=== PATIENT | male | born 1935 | race Caucasian/White ===

== ENCOUNTER 2024-12-01 14:17 | Inpatient (IN) | payer MEDICARE, OTHER ==
[~2024-12-01 14:17] MED LIST: Iopamidol 370 76% 100 ML VIAL ONE
[2024-12-01] MEDS ORDERED: Heparin 10,000 UNITS/ 10 ML VIAL ONE (14:23)
[2024-12-01] MEDS ORDERED: Aspirin Chewable 81 MG TAB ONE (14:23)
[2024-12-01 14:36] LABS: #Basophils Less than 0.03 10x3/uL (0.0-0.2); #Eosinophils Less than 0.03 10x3/uL (0.0-0.7); %Basophils 0.2 % (0.0-1.0); %Lymphocytes 3.9 % (21.0-51.0); %Monocytes 8.5 % (0.0-10.0); %Neutrophils 87.2 % (42.0-75.0); Hematocrit 28.2 % (42.0-52.0); Hemoglobin 8.5 g/dL (14.0-18.0); Mean Corpuscular HGB CONC 30.1 g/dL (32.0-36.0); Mean Corpuscular Volume 82.9 fL (78.0-98.0); Mean Platelet Volume 10.8 fL (7.4-10.4); Platelet Count 222 10x3/uL (130-400); RBC Distribution Width 16.9 % (11.5-14.5)
[2024-12-01 14:51] LABS: INR-International Normal Ratio 1.1; PTT 26.5 sec (22.9-36.1); Prothrombin Time 14.3 sec (12.0-14.7)
[2024-12-01 15:03] LABS: ALT (SGPT) 10 U/L (Less than 45); AST (SGOT) 25 U/L (11-34); Albumin 3.3 g/dL (3.1-4.5); Alkaline Phosphatase 60 U/L (40-110); Anion Gap 15 mmol/L (10-20); BUN (Urea Nitrogen) 12 mg/dL (8.4-25.7); Bilirubin, Total 0.7 mg/dL (0.3-1.2); Calc. Creatinine Clearance 0 mL/min (70-130); Calcium 8.3 mg/dL (7.8-10.44); Carbon Dioxide 20 mmol/L (23-31); Chloride 105 mmol/L (98-107); Estimated GFR 55; Globulin 3.3 g/dL (2.4-3.5); Glucose 142 mg/dL (83-110); Protein, Total 6.6 g/dL (5.8-8.1); Sodium 136 mmol/L (136-145)
[2024-12-01 15:05] LABS: Troponin I 0.162 ng/mL (< 0.028)
[2024-12-01 16:21] VITALS: BMI 21.9
[2024-12-01] MEDS: Sodium Chloride 0.9% 1,000 ML IV SCH (16:26)
[2024-12-01] MEDS ORDERED: Calcium Carbonate 500 MG ChewTAB PO PRN (16:31)
[2024-12-01] MEDS: Melatonin 3 MG TAB PO PRN (21:21)
[2024-12-01] MEDS: Metoprolol Tartrate 25 MG TAB PO SCH (21:21)
[2024-12-01] MEDS: Artificial Tear Ophth Sol 15 ML BOT EA EYE PRN (21:21)
[2024-12-01] MEDS: Atorvastatin Calcium 40 MG TAB PO SCH (21:21)
[2024-12-01] MEDS: traMADol HCl 50 MG TAB PO PRN (22:28)
[2024-12-01] MEDS: Lidocaine 4% Patch TD SCH (23:19)
[2024-12-01] MEDS: Ondansetron PF 4 MG/2 ML Vial IVP PRN (23:38)
[2024-12-02] MEDS ORDERED: Albuterol 2.5 MG (3 mL) NEB NEB PRN (03:31)
[2024-12-02 05:05] LABS: #Basophils 0.04 10x3/uL (0.0-0.2); #Eosinophils Less than 0.03 10x3/uL (0.0-0.7); %Basophils 0.2 % (0.0-1.0); %Eosinophils 0.1 % (0.0-10.0); %Lymphocytes 4.7 % (21.0-51.0); %Monocytes 5.8 % (0.0-10.0); %Neutrophils 88.2 % (42.0-75.0); Hematocrit 26.9 % (42.0-52.0); Mean Corpuscular HGB CONC 29.7 g/dL (32.0-36.0); Mean Corpuscular Hemoglobin 25.2 pg (27.0-31.0); Mean Corpuscular Volume 84.6 fL (78.0-98.0); Mean Platelet Volume 11.4 fL (7.4-10.4); Platelet Count 214 10x3/uL (130-400); RBC Distribution Width 17.2 % (11.5-14.5); Red Blood Cell (RBC) Count 3.18 mill/uL (4.70-6.10)
[2024-12-02 05:27] LABS: ALT (SGPT) 43 U/L (Less than 45); AST (SGOT) 276 U/L (11-34); Albumin 2.9 g/dL (3.1-4.5); Alkaline Phosphatase 47 U/L (40-110); Anion Gap 14 mmol/L (10-20); BUN (Urea Nitrogen) 14 mg/dL (8.4-25.7); Bilirubin, Total 0.5 mg/dL (0.3-1.2); Calc. Creatinine Clearance 45 mL/min (70-130); Calcium 7.8 mg/dL (7.8-10.44); Carbon Dioxide 19 mmol/L (23-31); Chloride 106 mmol/L (98-107); Estimated GFR 55; Globulin 3.2 g/dL (2.4-3.5); Glucose 181 mg/dL (83-110); Iron 8 ug/dL (65-175); Iron Binding Capacity, Total 370 mcg/dL (261-462); Potassium 4.8 mmol/L (3.5-5.1); Protein, Total 6.1 g/dL (5.8-8.1); Sodium 134 mmol/L (136-145)
[2024-12-02 05:46] LABS: Hemoglobin A1c 5.5 % (4.0-6.0)
[2024-12-02 05:55] LABS: Cardiac Risk 2.1 (Less than 4.5); Cholesterol 89 mg/dl (< 200 Desired); HDL Cholesterol 43 mg/dL (>60 Neg Risk); Iron 8 ug/dL (65-175); Iron Binding Capacity, Total 370 mcg/dL (261-462); LDL Cholesterol, Calculated 33 mg/dL; Magnesium 1.9 mg/dL (1.6-2.6); Triglycerides 63 mg/dL (Less than 150)
[2024-12-02] MEDS: Aspirin Chewable 81 MG TAB PO SCH (08:18)
[2024-12-02] MEDS: Clopidogrel Bisulfate 75 MG TAB PO SCH (08:18)
[2024-12-02] MEDS: Enoxaparin 40 MG (0.4 mL) SYRINGE SC SCH (08:18)
[2024-12-02] MEDS: Pantoprazole 40 MG DR.TAB PO SCH (08:18)
[2024-12-02] MEDS ORDERED: Isosorbide Dinitrate 20 MG TAB PO SCH (09:00)
[2024-12-02] MEDS: Furosemide 20 MG (2 mL) VIAL SLOW IVP SCH ×2 (09:54→16:19)
[2024-12-02] MEDS: Ipratropium/Albuterol 3 ML NEB NEB PRN (10:48)
[2024-12-02] MEDS: Sodium Ferric Gluconate 250 MG in Sodium Chloride 0.9% 250 ML 250 ML IVPB SCH (10:54)
[2024-12-02] MEDS: Montelukast Sodium 10 mg Tablet PO SCH (11:04)
[2024-12-02] MEDS: Transdermal Patch Removal TOP SCH (11:06)
[2024-12-02 12:09] LABS: Troponin I 75.827 ng/mL (< 0.028)
[2024-12-02] MEDS: Gabapentin 300 MG CAP PO SCH (19:54)
[2024-12-03 09:07] LABS: #Basophils Less than 0.03 10x3/uL (0.0-0.2); %Basophils 0.2 % (0.0-1.0); %Eosinophils 0.5 % (0.0-10.0); %Lymphocytes 6.3 % (21.0-51.0); %Monocytes 6.6 % (0.0-10.0); %Neutrophils 85.8 % (42.0-75.0); Hematocrit 23.3 % (42.0-52.0); Hemoglobin 7.3 g/dL (14.0-18.0); Mean Corpuscular HGB CONC 31.3 g/dL (32.0-36.0); Mean Corpuscular Hemoglobin 25.3 pg (27.0-31.0); Mean Corpuscular Volume 80.6 fL (78.0-98.0); Platelet Count 215 10x3/uL (130-400); RBC Distribution Width 17.4 % (11.5-14.5); Red Blood Cell (RBC) Count 2.89 mill/uL (4.70-6.10)
[2024-12-03 09:23] LABS: Anion Gap 12 mmol/L (10-20); BUN (Urea Nitrogen) 21 mg/dL (8.4-25.7); Calc. Creatinine Clearance 42 mL/min (70-130); Calcium 8.1 mg/dL (7.8-10.44); Carbon Dioxide 22 mmol/L (23-31); Chloride 104 mmol/L (98-107); Estimated GFR 51; Glucose 139 mg/dL (83-110); Potassium 4.2 mmol/L (3.5-5.1); Sodium 134 mmol/L (136-145)
[2024-12-03] MEDS: Montelukast Sodium 10 mg Tablet PO SCH (09:52)
[2024-12-03] MEDS: Empagliflozin 10 MG TAB PO SCH (09:52)
[2024-12-03] MEDS ORDERED: Piperacillin/Tazobactam 3.375 GM in Sodium Chloride 0.9% 100 ML IVPB SCH (14:45)
[2024-12-03] MEDS: Piperacillin/Tazobactam 3.375 GM in Sodium Chloride 0.9% 100 ML IVPB SCH ×2 (16:25→19:11)
[2024-12-04 04:02] LABS: #Basophils 0.03 10x3/uL (0.0-0.2); %Basophils 0.3 % (0.0-1.0); %Eosinophils 1.9 % (0.0-10.0); %Lymphocytes 9.5 % (21.0-51.0); %Monocytes 7.6 % (0.0-10.0); %Neutrophils 80.2 % (42.0-75.0); Hematocrit 24.2 % (42.0-52.0); Hemoglobin 7.5 g/dL (14.0-18.0); Mean Corpuscular Volume 80.7 fL (78.0-98.0); Mean Platelet Volume 12.1 fL (7.4-10.4); Platelet Count 246 10x3/uL (130-400); RBC Distribution Width 17.5 % (11.5-14.5)
[2024-12-04 04:18] LABS: Anion Gap 12 mmol/L (10-20); BUN (Urea Nitrogen) 21 mg/dL (8.4-25.7); Calc. Creatinine Clearance 39 mL/min (70-130); Calcium 8.4 mg/dL (7.8-10.44); Carbon Dioxide 23 mmol/L (23-31); Chloride 105 mmol/L (98-107); Estimated GFR 48; Glucose 111 mg/dL (83-110); Potassium 4.1 mmol/L (3.5-5.1); Sodium 136 mmol/L (136-145)
[2024-12-04] MEDS: Furosemide 40 MG (4 mL) VIAL IVP SCH (08:25)
[2024-12-04] MEDS: Ipratropium/Albuterol 3 ML NEB NEB SCH (11:07)
[2024-12-04] MEDS: Polyethylene Glycol 3350 17 GM Packet PO SCH (11:58)
[2024-12-04] MEDS: Senokot S 8.6-50 MG TAB PO PRN (11:58)
[2024-12-04] MEDS: methylPREDNISolone Sod Succ 40 MG VIAL IVP SCH (12:30)
[2024-12-04 15:12] VITALS: BP 104/52
[2024-12-05 00:01] VITALS: TEMP 98.3
== END 2024-12-05 00:23 | disposition short-term general hospital (02) | DRG 321 ==
LOC: ERS 14:17 → CCL 14:43 → EDBD 15:13 → CCU 15:13
PROVIDERS: ADMIT Internal Medicine; ATTEND Internal Medicine
PROC: 027034Z Dilation of Coronary Artery, One Artery with Drug-eluting Intraluminal Device, Percutaneous Approach (ICD-10-PCS; 2024-12-01)
PROC: B2111ZZ Fluoroscopy of Multiple Coronary Arteries using Low Osmolar Contrast (ICD-10-PCS; 2024-12-01)
PROC: 5A09357 Assistance with Respiratory Ventilation, Less than 24 Consecutive Hours, Continuous Positive Airway Pressure (ICD-10-PCS; 2024-12-03)
PROC: 30233N1 Transfusion of Nonautologous Red Blood Cells into Peripheral Vein, Percutaneous Approach (ICD-10-PCS; principal; 2024-12-04)
DX: I21.19 ST elevation (STEMI) myocardial infarction involving other coronary artery of inferior wall (principal); J69.0 Pneumonitis due to inhalation of food and vomit; I13.0 Hypertensive heart and chronic kidney disease with heart failure and stage 1 through stage 4 chronic kidney disease, or unspecified chronic kidney disease; I50.22 Chronic systolic (congestive) heart failure; E78.5 Hyperlipidemia, unspecified; I25.10 Atherosclerotic heart disease of native coronary artery without angina pectoris; Z66 Do not resuscitate; Z96.653 Presence of artificial knee joint, bilateral; Z51.5 Encounter for palliative care; N18.9 Chronic kidney disease, unspecified; I35.0 Nonrheumatic aortic (valve) stenosis; R53.81 Other malaise; D63.1 Anemia in chronic kidney disease; Z85.828 Personal history of other malignant neoplasm of skin; Z79.82 Long term (current) use of aspirin; Z79.02 Long term (current) use of antithrombotics/antiplatelets; Z79.899 Other long term (current) drug therapy; Z95.5 Presence of coronary angioplasty implant and graft
CPT/HCPCS: 36415; 36430; 71045; 80048; 80053; 80061; 82728; 83036; 83540; 83550; 83735; 83880; 84484; 85025; 85347; 85610; 85730; 86850; 86900; 86901; 92928; 92941; 93005; 93010; 93306; 93454; 93798; 94640; 94660; 94760; C1769; C1874; C1876; C1887; C1894; C9600; C9606; J1644; J1650; J1940; J2405; J2543; J2916; J2919; J7030; J7050; J7620; P9016; Q9967